=== PATIENT | female | born 1975 | race Caucasian/White ===

== ENCOUNTER 2017-08-03 05:41 | Day surgery (SDC) | payer OTHER ==
[2017-08-03] MEDS ORDERED: MIDAZOLAM 1 MG/ML 2 ML INJ (07:39)
[2017-08-03] MEDS ORDERED: FENTAnyl 50 MCG/ML VIAL (07:39)
== END 2017-08-03 11:18 | disposition home or self-care (01) ==
LOC: GIL 05:41 → SDS 05:47 → GIL 05:41
DX: K21.9 Gastro-esophageal reflux disease without esophagitis (principal); K29.70 Gastritis, unspecified, without bleeding; Z80.0 Family history of malignant neoplasm of digestive organs
CPT/HCPCS: 43239; 84703; 87081